=== PATIENT | female | born 1970 | race Caucasian/White ===

== ENCOUNTER 2018-12-10 16:50 | Observation (INO) | payer OTHER ==
--- NOTE | 2018-12-10 16:56 | ED ---
General Adult HPI - General Stated complaint: POSS CVA Time Seen by Provider: 12/10/18 16:52 Source: patient, EMS, RN notes reviewed, old records reviewed - History of Present Illness Initial comments: 48-year-old female presenting with difficulty speaking and seizure. Patient's symptoms initially began at 1513 according to EMS, she had some prior to being evaluated. Symptoms did return approximately 45 minutes later, EMS was called and during transport patient had a 45 second tonic clonic seizure with postictal period. This was witnessed by EMS. No medications were given. No complaints of headache, no chest pain, no abdominal pain. She had some mild nausea. She is able to answer simple questions at the time my evaluation. No previous history of CVA. Previous history of migraine headache. - Related Data Home Medications Medication Instructions Recorded Confirmed ALPRAZolam [Xanax] 0.25 mg PO Q8HR PRN 12/10/18 12/10/18 SUMAtriptan SUCCINATE [Imitrex] 100 mg PO DAILY PRN 12/10/18 12/10/18 Allergies Allergy/AdvReac Type Severity Reaction Status Date / Time erythromycin base Allergy Rash/Hives Verified 12/10/18 17:29 orange Allergy Rash/Hives Verified 12/10/18 18:08 peanut Allergy Rash/Hives Verified 12/10/18 18:08 Penicillins Allergy Anaphylaxis Verified 12/10/18 17:29 Review of Systems ROS Statement: Those systems with pertinent positive or pertinent negative responses have been documented in the HPI. ROS Other: All systems not noted in ROS Statement are negative. General Exam General appearance: alert, in no apparent distress Head exam: Present: atraumatic, normocephalic Eye exam: Present: normal appearance, PERRL, EOMI ENT exam: Present: normal exam Neck exam: Present: normal inspection. Absent: tenderness, meningismus Respiratory exam: Present: normal lung sounds bilaterally. Absent: respiratory distress Cardiovascular Exam: Present: regular rate, normal rhythm GI/Abdominal exam: Present: soft. Absent: distended, tenderness, guarding, rebound Extremities exam: Present: normal inspection, normal capillary refill. Absent: pedal edema Neurological exam: Present: alert, CN II-XII intact, motor sensory deficit (Patient has expressive aphasia, no dysarthria, no focal weakness in extremities, no facial weakness). Absent: oriented X3 (2) Skin exam: Present: warm, dry, intact. Absent: cyanosis, diaphoretic Course Vital Signs 12/10/18 12/10/18 12/10/18 16:50 17:05 17:20 Temperature 98.2 F Pulse Rate 102 H 101 H 97 Respiratory 18 16 12 Rate Blood Pressure 135/82 137/71 130/76 O2 Sat by Pulse 93 L 99 96 Oximetry 12/10/18 12/10/18 12/10/18 17:35 17:50 18:05 Temperature Pulse Rate 83 92 84 Respiratory 16 16 16 Rate Blood Pressure 117/76 124/76 114/67 O2 Sat by Pulse 95 96 97 Oximetry - Reevaluation(s) Reevaluation #1: 12/10/18 17:[address] Mckee, [id number], will review computed tomography scan results, possible TPA candidate Reevaluation #2: 12/10/18 17:23 Patient reevaluated, continues to have a nonfocal exam, her speech is fluid, she has no aphasia or dysarthria, symptoms completely resolved at 1720. EKG Findings - EKG Comments: EKG Findings:: EKG: Normal sinus rhythm, low voltage, rate of 95, WI interval 184, QRS duration 84, QTC 395, no ST segment elevation. Medical Decision Making - Medical Decision Making 48-year-old female presenting with expressive aphasia and suspected new onset seizure. Initially patient has expressive aphasia, this does resolve while in the emergency department. CT is performed which is negative for intracranial hemorrhage or mass effect, there is CT angiography performed in the emergency department which is negative for occlusion or stenosis. Patient has normal CBC, normal CMP. I did discuss case with stroke neurologist Dr. Love, recommends aspirin, and Keppra. No TPA as symptoms are resolved. On multiple re- evaluations, patient has fluid speech. She will be admitted for TIA evaluation as well as evaluation of new onset seizure. Case discussed with admitting physician Dr. Dawkins. - Lab Data Result diagrams: 12/10/18 17:32 12/10/18 17:32 Lab Results 12/10/18 12/10/18 12/10/18 Range/Units 16:54 17:32 17:32 WBC 10.2 (3.8-10.6) k/uL RBC 4.06 (3.80-5.40) m/uL Hgb 12.3 (11.4-16.0) gm/dL Hct 37.1 (34.0-46.0) % MCV 91.4 (80.0-100.0) fL MCH 30.4 (25.0-35.0) pg MCHC 33.2 (31.0-37.0) g/dL RDW 13.7 (11.5-15.5) % Plt Count 247 (150-450) k/uL Neutrophils % 75 % Lymphocytes % 15 % Monocytes % 6 % Eosinophils % 3 % Basophils % 0 % Neutrophils # 7.6 (1.3-7.7) k/uL Lymphocytes # 1.5 (1.0-4.8) k/uL Monocytes # 0.6 (0-1.0) k/uL Eosinophils # 0.3 (0-0.7) k/uL Basophils # 0.0 (0-0.2) k/uL PT (9.0-12.0) sec INR (<1.2) APTT (22.0-30.0) sec Sodium 135 L (137-145) mmol/L Potassium 3.9 (3.5-5.1) mmol/L Chloride 101 (98-107) mmol/L Carbon Dioxide 20 L (22-30) mmol/L Anion Gap 14 mmol/L BUN 17 (7-17) mg/dL Creatinine 0.79 (0.52-1.04) mg/dL Est GFR (CKD-EPI)AfAm >90 (>60 ml/min/1.73 sqM) Est GFR (CKD-EPI)NonAf 88 (>60 ml/min/1.73 sqM) Glucose 117 H (74-99) mg/dL POC Glucose (mg/dL) 119 H (75-99) mg/dL POC Glu [employer]ter ID Patel Simpson Calcium 9.1 (8.4-10.2) mg/dL Total Bilirubin 0.2 (0.2-1.3) mg/dL AST 26 (14-36) U/L ALT 33 (9-52) U/L Alkaline Phosphatase 70 (38-126) U/L Troponin I (0.000-0.034) ng/mL Total Protein 6.3 (6.3-8.2) g/dL Albumin 3.9 (3.5-5.0) g/dL Urine Color Urine Appearance (Clear) Urine pH (5.0-8.0) Ur Specific [place] (1.001-1.035) Urine Protein (Negative) Urine Glucose (UA) (Negative) Urine Ketones (Negative) Urine Blood (Negative) Urine Nitrite (Negative) Urine Bilirubin (Negative) Urine Urobilinogen (<2.0) mg/dL Ur Leukocyte Esterase (Negative) Urine RBC (0-5) /hpf Urine WBC (0-5) /hpf Ur Squamous Epith Cells (0-4) /hpf Hyaline Casts (0-2) /lpf Urine Opiates Screen (NotDetected) Ur Oxycodone Screen (NotDetected) Urine Methadone Screen (NotDetected) Ur Propoxyphene Screen (NotDetected) Ur Barbiturates Screen (NotDetected) U Tricyclic Antidepress (NotDetected) Ur Phencyclidine Scrn (NotDetected) Ur Amphetamines Screen (NotDetected) U Methamphetamines Scrn (NotDetected) U Benzodiazepines Scrn (NotDetected) Urine Cocaine Screen (NotDetected) U Marijuana (THC) Screen (NotDetected) Serum Alcohol <10 mg/dL 12/10/18 12/10/18 12/10/18 Range/Units 17:32 17:32 17:46 WBC (3.8-10.6) k/uL RBC (3.80-5.40) m/uL Hgb (11.4-16.0) gm/dL Hct (34.0-46.0) % MCV (80.0-100.0) fL MCH (25.0-35.0) pg MCHC (31.0-37.0) g/dL RDW (11.5-15.5) % Plt Count (150-450) k/uL Neutrophils % % Lymphocytes % % Monocytes % % Eosinophils % % Basophils % % Neutrophils # (1.3-7.7) k/uL Lymphocytes # (1.0-4.8) k/uL Monocytes # (0-1.0) k/uL Eosinophils # (0-0.7) k/uL Basophils # (0-0.2) k/uL PT 10.4 (9.0-12.0) sec INR 1.0 (<1.2) APTT 23.7 (22.0-30.0) sec Sodium (137-145) mmol/L Potassium (3.5-5.1) mmol/L Chloride (98-107) mmol/L Carbon Dioxide (22-30) mmol/L Anion Gap mmol/L BUN (7-17) mg/dL Creatinine (0.52-1.04) mg/dL Est GFR (CKD-EPI)AfAm (>60 ml/min/1.73 sqM) Est GFR (CKD-EPI)NonAf (>60 ml/min/1.73 sqM) Glucose (74-99) mg/dL POC Glucose (mg/dL) (75-99) mg/dL POC Glu Bumper And Painter ID Calcium (8.4-10.2) mg/dL Total Bilirubin (0.2-1.3) mg/dL AST (14-36) U/L ALT (9-52) U/L Alkaline Phosphatase (38-126) U/L Troponin I <0.012 (0.000-0.034) ng/mL Total Protein (6.3-8.2) g/dL Albumin (3.5-5.0) g/dL Urine Color Urine Appearance (Clear) Urine pH (5.0-8.0) Ur Specific [place] (1.001-1.035) Urine Protein (Negative) Urine Glucose (UA) (Negative) Urine Ketones (Negative) Urine Blood (Negative) Urine Nitrite (Negative) Urine Bilirubin (Negative) Urine Urobilinogen (<2.0) mg/dL Ur Leukocyte Esterase (Negative) Urine RBC (0-5) /hpf Urine WBC (0-5) /hpf Ur Squamous Epith Cells (0-4) /hpf Hyaline Casts (0-2) /lpf Urine Opiates Screen Not Detected (NotDetected) Ur Oxycodone Screen Not Detected (NotDetected) Urine Methadone Screen Not Detected (NotDetected) Ur Propoxyphene Screen Not Detected (NotDetected) Ur Barbiturates Screen Not Detected (NotDetected) U Tricyclic Antidepress Not Detected (NotDetected) Ur Phencyclidine Scrn Not Detected (NotDetected) Ur Amphetamines Screen Not Detected (NotDetected) U Methamphetamines Scrn Not Detected (NotDetected) U Benzodiazepines Scrn Not Detected (NotDetected) Urine Cocaine Screen Not Detected (NotDetected) U Marijuana (THC) Screen Not Detected (NotDetected) Serum Alcohol mg/dL 12/10/18 Range/Units 17:46 WBC (3.8-10.6) k/uL RBC (3.80-5.40) m/uL Hgb (11.4-16.0) gm/dL Hct (34.0-46.0) % MCV (80.0-100.0) fL MCH (25.0-35.0) pg MCHC (31.0-37.0) g/dL RDW (11.5-15.5) % Plt Count (150-450) k/uL Neutrophils % % Lymphocytes % % Monocytes % % Eosinophils % % Basophils % % Neutrophils # (1.3-7.7) k/uL Lymphocytes # (1.0-4.8) k/uL Monocytes # (0-1.0) k/uL Eosinophils # (0-0.7) k/uL Basophils # (0-0.2) k/uL PT (9.0-12.0) sec INR (<1.2) APTT (22.0-30.0) sec Sodium (137-145) mmol/L Potassium (3.5-5.1) mmol/L Chloride (98-107) mmol/L Carbon Dioxide (22-30) mmol/L Anion Gap mmol/L BUN (7-17) mg/dL Creatinine (0.52-1.04) mg/dL Est GFR (CKD-EPI)AfAm (>60 ml/min/1.73 sqM) Est GFR (CKD-EPI)NonAf (>60 ml/min/1.73 sqM) Glucose (74-99) mg/dL POC Glucose (mg/dL) (75-99) mg/dL POC Glu Bumper And Painter ID Calcium (8.4-10.2) mg/dL Total Bilirubin (0.2-1.3) mg/dL AST (14-36) U/L ALT (9-52) U/L Alkaline Phosphatase (38-126) U/L Troponin I (0.000-0.034) ng/mL Total Protein (6.3-8.2) g/dL Albumin (3.5-5.0) g/dL Urine Color Light Yellow Urine Appearance Clear (Clear) Urine pH 5.5 (5.0-8.0) Ur Specific [place] 1.034 (1.001-1.035) Urine Protein Negative (Negative) Urine Glucose (UA) Negative (Negative) Urine Ketones 1+ H (Negative) Urine Blood Trace H (Negative) Urine Nitrite Negative (Negative) Urine Bilirubin Negative (Negative) Urine Urobilinogen <2.0 (<2.0) mg/dL Ur Leukocyte Esterase Negative (Negative) Urine RBC 5 (0-5) /hpf Urine WBC 1 (0-5) /hpf Ur Squamous Epith Cells 3 (0-4) /hpf Hyaline Casts 1 (0-2) /lpf Urine Opiates Screen (NotDetected) Ur Oxycodone Screen (NotDetected) Urine Methadone Screen (NotDetected) Ur Propoxyphene Screen (NotDetected) Ur Barbiturates Screen (NotDetected) U Tricyclic Antidepress (NotDetected) Ur Phencyclidine Scrn (NotDetected) Ur Amphetamines Screen (NotDetected) U Methamphetamines Scrn (NotDetected) U Benzodiazepines Scrn (NotDetected) Urine Cocaine Screen (NotDetected) U Marijuana (THC) Screen (NotDetected) Serum Alcohol mg/dL Critical Care Time Critical Care Time: Yes Total Critical Care Time: 35 Disposition Clinical Impression: Transient cerebral ischemia, New onset seizure Disposition: ADMITTED IP TO THIS [facility] Condition: Stable Is patient prescribed a controlled substance at d/c from ED?: No Referrals: None,Stated [REFERRING] - 1-2 days Decision to Admit Reason: Admit from EC Decision Date: 12/10/18 Decision Time: 18:55
[2018-12-10 17:15] LABS: Glucose,Whole Blood 119 mg/dL (75-99)
[2018-12-10] MEDS ORDERED: SODIUM CHLORIDE 0.9% 1,000 ML IV ONE (17:22)
--- NOTE | 2018-12-10 17:27 | CT ---
EXAMINATION: CT brain wo con for TPA DATE AND TIME: 12/10/2018 5:14 PM CLINICAL INDICATION: PHH; Neuro Deficits TECHNIQUE: Standard departmental protocol.; 1104; COMPARISON: None. FINDINGS: The calvarium is intact. There is no intracranial hemorrhage. There is no intracranial mass or mass effect. No definite new intra-axial or extra-axial attenuation defect. The paranasal sinuses, middle ear cavities, and mastoid sinus air cells are clear. The orbits are unremarkable. IMPRESSION: NO ACUTE PROCESS.
[2018-12-10] MEDS ORDERED: ASPIRIN 325 MG TAB PO STA (17:28)
[2018-12-10] MEDS ORDERED: levETIRAcetam IV 1,000 MG in SALINE 1 100ML.BAG IVPB STA (17:28)
[2018-12-10 17:40] LABS: Basophils % (A) 0 %; Eosinophils # (A) 0.3 k/uL (0-0.7); Eosinophils % (A) 3 %; HCT 37.1 % (34.0-46.0); HGB 12.3 gm/dL (11.4-16.0); Lymphocytes # (A) 1.5 k/uL (1.0-4.8); Lymphocytes % (A) 15 %; MCH 30.4 pg (25.0-35.0); MCHC 33.2 g/dL (31.0-37.0); MCV 91.4 fL (80.0-100.0); Mean Platelet Volume 7.8; Monocytes # (A) 0.6 k/uL (0-1.0); Monocytes % (A) 6 %; Neutrophils # (A) 7.6 k/uL (1.3-7.7); Neutrophils % (A) 75 %; Platelet Count 247 k/uL (150-450); RBC 4.06 m/uL (3.80-5.40); RDW 13.7 % (11.5-15.5); WBC 10.2 k/uL (3.8-10.6)
[2018-12-10 17:49] LABS: ALT 33 U/L (9-52); AST 26 U/L (14-36); African American GFR (CKD) >90 (>60 ml/min/1.73 sqM); Albumin 3.9 g/dL (3.5-5.0); Alcohol <10 mg/dL; Alkaline Phosphatase 70 U/L (38-126); Anion Gap 14 mmol/L; Blood Urea Nitrogen 17 mg/dL (7-17); Calcium 9.1 mg/dL (8.4-10.2); Carbon Dioxide 20 mmol/L (22-30); Chloride 101 mmol/L (98-107); Glucose 117 mg/dL (74-99); Potassium 3.9 mmol/L (3.5-5.1); Sodium 135 mmol/L (137-145); Total Bilirubin 0.2 mg/dL (0.2-1.3); Total Protein 6.3 g/dL (6.3-8.2)
[2018-12-10 17:50] LABS: Partial Thromboplastin Time 23.7 sec (22.0-30.0); Prothrombin Time 10.4 sec (9.0-12.0)
[2018-12-10 18:03] LABS: Appearance,Urine Clear (Clear); Bilirubin,Urine Negative (Negative); Blood,Urine Trace (Negative); Color,Urine Light Yellow; Glucose,Urine (UA) Negative (Negative); Hyaline Casts,Urine 1 /lpf (0-2); Ketones,Urine 1+ (Negative); Leukocyte Esterase,Urine Negative (Negative); Nitrite,Urine Negative (Negative); PH, Urine 5.5 (5.0-8.0); Protein,Urine Negative (Negative); RBC,Urine 5 /hpf (0-5); Specific Gravity,Urine 1.034 (1.001-1.035); Squamous Epithelial Cell,Urine 3 /hpf (0-4); Urobilinogen,Urine <2.0 mg/dL (<2.0); WBC,Urine 1 /hpf (0-5)
[2018-12-10] MEDS ORDERED: ONDANSETRON 4 MG/2 ML VIAL IVP STA (18:04)
[2018-12-10] MEDS ORDERED: METOCLOPRAMIDE 5 MG/ML 2 ML VIAL IVP STA (18:04)
--- NOTE | 2018-12-10 18:13 | CT ---
EXAMINATION TYPE: CT angio head neck DATE OF EXAM: 12/10/2018 HISTORY: neuro deficits COMPARISON: , Nausea. CT DLP: 2122.7 mGycm. Automated Exposure Control for Dose Reduction was Utilized. TECHNIQUE: CTA scan of the neck is performed with IV Contrast, patient injected with 100 mL of Isovu e 370, axial images are obtained, coronal and sagittal reformatted images are reviewed. Three-D recon structed images are created on an independent workstation and reviewed. FINDINGS: The bilateral carotid arterial systems are widely patent without significant stenosis or d issection or aneurysm. Intracranial anterior circulation is widely patent, without significant stenos is or dissection or aneurysm. The bilateral vertebral arterial systems are widely patent without significant stenosis or dissection or aneurysm. Intracranial posterior circulation is widely patent, without significant stenosis or di ssection or aneurysm. The venous structures within the neck and the dural venous sinuses are widely patent. The airway is unremarkable. No soft tissue neck or upper thoracic pathology. No focal skeletal lesions. No incidental intracranial or intraspinal findings. IMPRESSION: No significant abnormality is seen.
[2018-12-10 18:19] LABS: Amphetamine Screen,Urine Not Detected (NotDetected); Barbiturate Screen,Urine Not Detected (NotDetected); Benzodiazepines Screen,Urine Not Detected (NotDetected); Cocaine Screen,Urine Not Detected (NotDetected); Methadone Screen, Urine Not Detected (NotDetected); Opiate Screen,Urine Not Detected (NotDetected); Oxycodone Screen, Urine Not Detected (NotDetected); Phencyclidine Screen,Urine Not Detected (NotDetected); Tricyclic Antidepressant,Urine Not Detected (NotDetected); Urn Cannabinoid Scrn Not Detected (NotDetected)
--- NOTE | 2018-12-10 19:31 | XR ---
EXAMINATION: XR chest 1V portable DATE AND TIME: 12/10/2018 5:57 PM CLINICAL INDICATION: PHH; altered mental status TECHNIQUE: Departmental protocol COMPARISON: None FINDINGS: The lungs are clear. The pleural spaces are negative. The cardiac silhouette is mildly enlarged. The remainder of the mediastinal silhouette is unremarkable. The skeletal structures and soft tissues are negative for acute findings. IMPRESSION: NO ACUTE PROCESS.
[2018-12-10 21:16] VITALS: BMI 39.2
[2018-12-10] MEDS: ATORVASTATIN 80 MG TAB PO SCH (21:21)
[2018-12-11] MEDS ORDERED: ALPRAZolam 0.25 MG TAB PO PRN (00:59)
[2018-12-11 03:15] LABS: Cholesterol 167 mg/dL (<200); HDL Cholesterol 51 mg/dL (40-60); LDL Cholesterol,Calculated 96 mg/dL (0-99); Triglycerides 100 mg/dL (<150)
[2018-12-11] MEDS: ACETAMINOPHEN TAB 325 MG TAB PO PRN ×2 (04:53→12:36)
[2018-12-11] MEDS: PANTOPRAZOLE 40 MG TABLET PO SCH (06:19)
--- NOTE | 2018-12-11 08:16 | HP ---
HISTORY AND PHYSICAL DATE OF SERVICE: 12/10/2018 CHIEF COMPLAINT: Difficulty in peaking as well as possible seizure disorder. HISTORY OF PRESENT ILLNESS: This 48-year-old woman with a past medical history of multiple medical problems including history of migraines, history of partial thyroidectomy, diskectomy in the back pain being followed by Dr. Carmita Srinivasan in the outpatient setting apparently driving with the daughter after seeing a house. The patient had difficulty in speaking. The patient was knowing what to say, but the words are not coming out according to her. Patient came up to the hospital, went back home but subsequently patient's difficulties increased and EMS was called and patient came back to [facility] Emergency Room again. The patient was noted to have some seizure-like movements by EMS, which lasted about 4 to 6 seconds and with a postictal period and the patient admitted for further evaluation and treatment. There is no history of any fever or rigors. No history of headache, loss of consciousness or seizures. The patient is also complaining of left calf pain also. PAST MEDICAL HISTORY: History of migraine, history of partial thyroidectomy, diskectomy, history of nicotine dependence. MEDICATIONS: Medications prior to admission include: 1. Imitrex 100 mg daily p.r.n. 2. Xanax 0.25 q.8 p.r.n. ALLERGIES: ERYTHROMYCIN, ORANGE, PEANUT, PENICILLIN. FAMILY HISTORY: No history of heart disease or strokes in the family. SOCIAL HISTORY: Previous history of smoking. No history of current smoking or alcohol intake. The patient is otherwise present of operations. REVIEW OF SYSTEMS: ENT: No diminished hearing or diminished vision. CARDIOVASCULAR SYSTEM: No angina. RESPIRATORY SYSTEM: No cough. GI: No nausea. : No dysuria. NERVOUS SYSTEM: As mentioned earlier. ALLERGY/IMMUNOLOGY: No history of asthma. MUSCULOSKELETAL SYSTEM: No history arthritis. CONSTITUTIONAL: As mentioned earlier. DERMATOLOGY: Negative. RHEUMATOLOGY: Negative. PSYCHIATRY: As mentioned earlier. PHYSICAL EXAMINATION: The patient is alert and oriented x3. Pulse 72, blood pressure is 112/71, respiration 18, temperature is 97.6, pulse ox 95% on room air. HEENT: Conjunctivae normal. Oral mucosa moist. NECK: No jugular venous distention. No carotid bruit. No lymph node enlargement. CARDIOVASCULAR: S1, S2 muffled. No S3, no S4. RESPIRATORY: Breath sounds diminished at the bases. A few rhonchi. No crackles. ABDOMEN: Soft, nontender. No mass palpable. LEGS: No edema, no swelling. NERVOUS SYSTEM: Higher function as mentioned. Moves all 4 limbs. No focal deficits. LYMPHATICS: No lymphadenopathy of the neck, axillae or groin. SKIN: No ulcer, rash or bleeding. JOINTS: No active deforming arthropathy. ASSESSMENT: 1. Possible tonic-clonic seizure disorder for evaluation. 2. Dysarthria and dysphagia, rule out transient ischemic attack. 3. Mild hyponatremia. 4. Increased random blood sugar. 5. History of migraines. 6. History of partial thyroidectomy. 7. 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 8. Remote history of nicotine dependence. 9. Obesity with body mass index of 39.3. RECOMMENDATIONS AND DISCUSSION: In this 48-year-old woman who presented with multiple complex medical issues, will monitor the patient closely. Continue the current medications, continue symptomatic treatment. Will initiate antiplatelet agents. Neuro checks. Complete neurovascular workup and EEG. Neurology consultation. The patient had a baseline CT and CT angiography which are within normal limits. We will continue to monitor. Guarded prognosis. Further recommendations to follow. A copy of this dictation forwarded to Dr. Carmita Srinivasan who is the primary physician. MMODL / IJN: [id number] / MTDSelvin
[2018-12-11] MEDS: ASPIRIN 325 MG TAB PO SCH (08:20)
[2018-12-11] MEDS: HEPARIN SODIUM,PORCINE 5,000 UNIT/ML 1 ML VIAL SQ SCH ×2 (08:20→20:14)
[2018-12-11] MEDS ORDERED: SUMAtriptan SUCCINATE 50 MG TAB PO PRN (09:00)
--- NOTE | 2018-12-11 10:52 | US ---
EXAMINATION TYPE: US venous doppler duplex LE LT DATE OF EXAM: 12/11/2018 10:33 AM COMPARISON: NONE CLINICAL HISTORY: Left Calf Pain . Pt states left leg pain SIDE PERFORMED: Left TECHNIQUE: The lower extremity deep venous system is examined utilizing real time linear array sonog mariela with graded compression, doppler sonography and color-flow sonography. VESSELS IMAGED: External Iliac Vein (EIV) Common Femoral Vein Deep Femoral Vein Greater Saphenous Vein * Femoral Vein Popliteal Vein Small Saphenous Vein * Proximal Calf Veins (* superficial vessels) Grayscale, color doppler, spectral doppler imaging performed of the deep veins of the left lower extr emity. There is normal flow, compressibility, vascular waveforms. Left Leg: Negative for DVT IMPRESSION: No sonographic evidence of deep venous thrombosis within the left lower extremity.
--- NOTE | 2018-12-11 12:12 | EEG ---
ELECTROENCEPHALOGRAM REPORT DATE OF SERVICE: 12/11/2018. PREAMBLE: This is a 48-year-old female with a history of migraine who presented with episode of difficulty with speaking with witnessed possible seizure activity with post- ictal phase. The study is performed to rule out any epileptiform activity. CURRENT MEDICATIONS: Imitrex, pantoprazole, heparin subcutaneous, atorvastatin, Tylenol, Xanax, aspirin. TYPE OF RECORDING: A routine 21 channel awake digital EEG recording was accomplished utilizing the 10/20 international electrode placement system. No sedation was given prior to the beginning of this recording. EEG FINDINGS: Background tracing is seen with a symmetric alpha rhythm that attenuates on eye opening and returns upon eye closure. There are scattered EMG artifacts that correspond to patient's facial movements. Photic stimulation elicits a symmetric driving response. Hyperventilation is not performed in this recording. As the tracing progresses, there is progressive slowing down of the background into the theta and occasionally delta range. Definitive sleep architecture is not seen. There are also scattered EKG artifacts. There is no background asymmetry, ictal or interictal patterns appreciated during this recording. IMPRESSION: This is a normal awake/drowsy electroencephalogram without background asymmetry or epileptiform discharges. Clinical correlation is advised. MMODL / IJN: [id number] / MTDSelvin
--- NOTE | 2018-12-11 12:17 | ECHOF ---
Referral Reason:Stroke MEASUREMENTS -------- HEIGHT: 154.9 cm WEIGHT: 91.2 kg BP: 101/57 RVIDd: 3.1 cm (< 3.3) IVSd: 1.4 cm (0.6 - 1.1) LVIDd: 4.3 cm (3.9 - 5.3) LVPWd: 1.4 cm (0.6 - 1.1) IVSs: 1.9 cm LVIDs: 2.7 cm LVPWs: 1.9 cm LAESV Index (A-L): 16.01 ml/m Ao Diam: 2.7 cm (2.0 - 3.7) AV Cusp: 2.2 cm (1.5 - 2.6) LA Diam: 3.7 cm (2.7 - 3.8) MV EXCURSION: 7.636 mm (> 18.000) MV EF SLOPE: 56 mm/s (70 - 150) EPSS: 0.8 cm MV E Lenin: 0.91 m/s MV DecT: 241 ms MV A Lenin: 0.88 m/s MV E/A Ratio: 1.03 RAP: 5.00 mmHg RVSP: 12.32 mmHg FINDINGS -------- Sinus rhythm. This was a technically difficult study with suboptimal views. The left ventricular size is normal. There is moderate concentric left ventricular hypertrophy. O verall left ventricular systolic function is normal with, an EF between 55 - 60 %. The right ventricle is normal in size. The left atrial size is normal. Normal LA size by volume 22+/-6 ml/m2. The right atrial size is normal. Lumason used The aortic valve is trileaflet and appears structurally normal. The mitral valve is normal. There is trace mitral regurgitation. Trace tricuspid regurgitation present. Right ventricular systolic pressure is normal at < 35 mmHg. There is no pulmonic regurgitation present. The aortic root size is normal. IVC Not well visulized. There is no pericardial effusion. CONCLUSIONS -------- 1. Sinus rhythm. 2. This was a technically difficult study with suboptimal views. 3. The left ventricular size is normal. 4. There is moderate concentric left ventricular hypertrophy. 5. Overall left ventricular systolic function is normal with, an EF between 55 - 60 %. 6. The right ventricle is normal in size. 7. The left atrial size is normal. 8. Normal LA size by volume 22+/-6 ml/m2. 9. The right atrial size is normal. 10. Lumason used 11. The aortic valve is trileaflet and appears structurally normal. 12. The mitral valve is normal. 13. There is trace mitral regurgitation. 14. Trace tricuspid regurgitation present. 15. Right ventricular systolic pressure is normal at < 35 mmHg. 16. There is no pulmonic regurgitation present. 17. The aortic root size is normal. 18. IVC Not well visulized. 19. There is no pericardial effusion. REHABILITATION INSPECTOR: Glory Rosales RDCS
--- NOTE | 2018-12-11 15:41 | P.CNNES ---
History of Present Illness Consult date: 12/11/18 Requesting physician: Juliocesar Magallon Reason for Consult: New-onset single seizure Chief complaint: "I passed out and was told I had a seizure" History of Present Illness: This is a 48-year-old right-handed female who was in their usual state of health on 12/10/2018. Patient was a passenger in a vehicle with her daughter driving. There were conversing when the daughter noticed that the patient was producing nonsensical speech. Patient stated that at that time, she was cognizant and th ought that her speech was normal; however, that was not the case according to the daughter who was listening to her. Patient went home and was noted to be confused. Paramedics were summoned. Reportedly while in route to the hospital, she was noted to have a generalized tonic-clonic seizure but without tongue or inner cheek biting or bowel or bladder incontinence. There was post-ictal confusion. There was no preceding aura, prodrome, jatin vu or witnessed repetitive behavior suspicious for automatism. There was no history of head or neck trauma. No new changes to her medications, physical or dietary habits. No extra physical or emotional stressors. No sleep deprivation. Patient does have a history of migraine that is in fact getting better as she is going through menopause. Patient states that she had never had any of the above neurological symptoms in association with her headaches. She does have alprazolam listed on her medication list, but patient states that she has not taken this benzodiazepine or any benzodiazepine for years. She also denies any illicit drug or stimulant use. Patient feels at her neurological baseline currently. Review of Systems 14-point ROS performed and as per HPI. Neurologically, patient denies other episodes of decreased level or loss of consciousness, changes in vision, diplopia, amaurosis, changes in hearing, facial droop, ptosis, vertigo, hearing loss, tinnitus, dysarthria, dysphagia, other focal numbness/weakness not mentioned above, bowel/bladder incontinence or ataxia. Past Medical History Additional Past Medical History / Comment(s): migraines History of Any Multi-Drug Resistant Organisms: None Reported Past Surgical History: No Surgical Hx Reported Additional Past Surgical History / Comment(s): partial thyroidectomy, disectomy in back Past Anesthesia/Blood Transfusion Reactions: No Reported Reaction Past Psychological History: No Psychological Hx Reported Smoking Status: Former smoker Past Alcohol Use History: None Reported Past Drug Use History: None Reported Medications and Allergies Home Medications Medication Instructions Recorded Confirmed Type ALPRAZolam [Xanax] 0.25 mg PO Q8HR PRN 12/10/18 12/10/18 History SUMAtriptan SUCCINATE [Imitrex] 100 mg PO DAILY PRN 12/10/18 12/10/18 History Allergies Allergy/AdvReac Type Severity Reaction Status Date / Time erythromycin base Allergy Rash/Hives Verified 12/10/18 17:29 orange Allergy Rash/Hives Verified 12/10/18 18:08 peanut Allergy Rash/Hives Verified 12/10/18 18:08 Penicillins Allergy Anaphylaxis Verified 12/10/18 17:29 Physical Examination - Vital Signs Vital Signs: Vital Signs Temp Pulse Pulse Resp BP BP Pulse Ox 12/11/18 12:00 97.6 F 64 17 109/52 96 12/11/18 08:00 97.8 F 66 18 104/52 96 12/11/18 04:00 97.0 F L 67 18 101/57 97 12/11/18 00:00 97.2 F L 76 18 105/70 97 12/10/18 21:10 97.6 F 72 18 112/71 95 12/10/18 20:45 72 18 12/10/18 20:30 80 16 115/63 12/10/18 20:00 79 17 120/63 94 L 12/10/18 19:30 74 14 116/69 97 12/10/18 19:00 73 15 115/62 97 12/10/18 18:46 97.8 F 78 18 120/63 97 12/10/18 18:30 82 14 114/67 96 12/10/18 18:05 84 16 114/67 97 12/10/18 17:50 92 16 124/76 96 12/10/18 17:35 83 16 117/76 95 12/10/18 17:20 97 12 130/76 96 12/10/18 17:05 101 H 16 137/71 99 12/10/18 16:50 98.2 F 102 H 18 135/82 93 L Intake and Output 12/11/18 12/11/18 12/11/18 06:59 14:59 22:59 Intake Total 480 Balance 480 Intake: Oral 480 Other: Voiding Method Toilet Toilet # Voids 1 1 Weight 88.2 kg Gen NAD Pleasant and cooperative HEENT NCAT Sclera without icterus O/P clear Neck Supple No carotid bruit Cor RRR no m/r/g Lungs CTAB Abd Soft NTND +BS Ext Warm to touch No edema Neuro MS A+Ox4 Normal fluency Able to follow all commands CN PERRL VFF no APD EOMI no nystagmus or VERENICE No facial asymmetry Masseter's symmetric Hearing intact to normal voice bilaterally Speech not dysarthric Equal elevation of palate Tongue midline Sym shrug and SCM bilaterally Motor Normal bulk/tone No pronator drift or tremors Strength 5/5 sym throughout Sens Intact to LT x4 No neglect Coord No dysmetria on FTN bilaterally DTRs 2+/4 sym throughout Toes downgoing bilaterally No clonus at achilles Gait Deferred Results CT Head wo cont 12/10/18. Nil acute. CTA Head/Neck 12/10/18. No intra or extracranial LVO or stenosis. EEG 12/11/18. No EPD. Normal awake/drowsy. TTE 12/11/18. Left ventricular size is normal. There is moderate concentric left ventricular hypertrophy. EF is between 55-60%. Left atrial size is normal. There are no intracardiac thrombi seen. - Laboratory Findings CBC and BMP: 12/10/18 17:32 12/10/18 17:32 Abnormal Lab Findings: Abnormal Labs 12/10/18 12/10/18 12/10/18 16:54 17:32 17:46 Sodium 135 L Carbon Dioxide 20 L Glucose 117 H POC Glucose (mg/dL) 119 H Urine Ketones 1+ H Urine Blood Trace H UTox negative. BAL <10 Assessment and Plan Assessment: New-onset single seizure, etiology unknown. Common migraine, unlikely to explain her seizure. Plan: -MRI Brain w vinayak -EEG unrevealing. Explained that EEG is not 100% sensitive in the absence of capturing a spell during monitoring. Epilepsy remains a clinical diagnosis. -If her MRI is also negative, for a single new-onset unprovoked seizure, the chance of her having recurrent seizure in the future is likely <50%. The majority of neurologists, myself included, would not commit her to long-term AED therapy if her seizure work-up is entirely unrevealing. However, if she goes on to have a 2nd unprovoked seizure, then chance of her having further recurrent seizures would be >75%, and in that case, she would need to be on long-term AED therapy. -Seizure precautions. -Patient actually has not taken any benzodiazepine for years. Explained the difference between provoked and unprovoked seizure and treatment algorithm. -Patient should not drive for 6 months from her last clinical seizure in accordance with the state law of [place]. Same common sense applies to engaging any physical activity that may endanger patient and/or others should she have recurrent seizure activity. Patient voices understanding. -Please refer patient to outpatient neurology for follow-up within the next 4 weeks. -d/w patient and family at bedside. All questions answered. Thank you for this consultation. Time with Patient: Greater than 30 (Time spent in direct patient care, greater than 50% of which was spent in [id number] counseling and coordination of care: 70 minutes.)
--- NOTE | 2018-12-11 17:57 | PN ---
PROGRESS NOTE DATE OF SERVICE: 12/11/2018 This 48-year-old woman who was admitted with difficulty in speaking as well as possible seizure disorder is being closely monitored. Neurology is following the patient closely. Two-D echo with Doppler was done that showed ejection fraction of about 50% to 60%. No major abnormalities. A venous Doppler was also done for the legs which showed no evidence of any DVT. EEG ordered by neurologist Dr. Alexander showed normal awake drowsy electrocardiogram without any background asymmetry or epileptiform discharges. No chest pain. No palpitations. No fever. On exam, alert and oriented x3. Pulse is 66, blood pressure 104/52, respiration 18, temperature 97.8, pulse ox 96% on room air. HEENT: Conjunctivae normal. NECK: No jugular venous distention. CARDIOVASCULAR SYSTEM: S1, S2 muffled. RESPIRATORY SYSTEM: Breath sounds diminished at the bases. No rhonchi. No crackles. ABDOMEN: Soft, non-tender. No mass palpable. LEGS: No edema. No swelling. NERVOUS SYSTEM: No focal deficit. LABS AT THIS TIME: CBC within normal limits. Sodium 135. Glucose 117. UA noted. ASSESSMENT: 1. Possible acute tonic-clonic seizures, for evaluation. 2. Dysarthria, dysphagia. Rule out acute transient ischemic attack. 3. Mild hyponatremia. 4. Increased random blood sugar. 5. History of migraines. 6. History of partial thyroidectomy. 7. 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 8. Remote history of nicotine dependence. 9. Obesity with body mass index of 39.3. DISCUSSION AND RECOMMENDATIONS: I recommend to continue current medications, continue with the monitoring, symptomatic treatment. Neurology has seen the patient. EEG is noted. MRI has been ordered. Otherwise, continue the rest of the medications. Telemetry. Guarded prognosis. Further recommendations to follow. MMODL / IJN: [id number] /
[2018-12-11] MEDS: ATORVASTATIN 80 MG TAB PO SCH (20:14)
[2018-12-12 06:29] LABS: Basophils % (A) 0 %; Eosinophils # (A) 0.2 k/uL (0-0.7); Eosinophils % (A) 2 %; HCT 36.6 % (34.0-46.0); Lymphocytes # (A) 1.8 k/uL (1.0-4.8); Lymphocytes % (A) 25 %; MCH 30.3 pg (25.0-35.0); MCHC 32.7 g/dL (31.0-37.0); MCV 92.6 fL (80.0-100.0); Mean Platelet Volume 8.4; Monocytes # (A) 0.5 k/uL (0-1.0); Monocytes % (A) 6 %; Neutrophils # (A) 4.8 k/uL (1.3-7.7); Neutrophils % (A) 65 %; Platelet Count 218 k/uL (150-450); RBC 3.95 m/uL (3.80-5.40); RDW 14.6 % (11.5-15.5); WBC 7.4 k/uL (3.8-10.6)
[2018-12-12] MEDS: PANTOPRAZOLE 40 MG TABLET PO SCH (06:42)
[2018-12-12 06:54] LABS: African American GFR (CKD) >90 (>60 ml/min/1.73 sqM); Anion Gap 5 mmol/L; Blood Urea Nitrogen 14 mg/dL (7-17); Calcium 8.8 mg/dL (8.4-10.2); Carbon Dioxide 26 mmol/L (22-30); Chloride 108 mmol/L (98-107); Cholesterol 138 mg/dL (<200); Glucose 91 mg/dL (74-99); HDL Cholesterol 49 mg/dL (40-60); LDL Cholesterol,Calculated 70 mg/dL (0-99); Sodium 139 mmol/L (137-145); Triglycerides 96 mg/dL (<150)
[2018-12-12] MEDS: ASPIRIN 325 MG TAB PO SCH (08:48)
[2018-12-12] MEDS: HEPARIN SODIUM,PORCINE 5,000 UNIT/ML 1 ML VIAL SQ SCH (08:48)
[2018-12-12] MEDS ORDERED: LORazepam 2 MG/ML INJ IV STA (11:34)
--- NOTE | 2018-12-12 13:29 | P.PN ---
Subjective Progress Note Date: 12/12/18 Principal diagnosis: New-onset single seizure No events O/N. No seizure. No new neuro c/o. Family at bedside with questions. Objective - Vital Signs Vital signs: Vital Signs Temp 97.6 F 12/12/18 08:00 Pulse 72 12/12/18 08:00 Resp 16 12/12/18 08:00 BP 123/62 12/12/18 08:00 Pulse Ox 97 12/12/18 08:00 Intake & Output 12/11/18 12/12/18 12/12/18 18:59 06:59 18:59 Intake Total 840 Balance 840 Weight 89.2 kg Intake: Oral 840 Other: Voiding Method Toilet Toilet Toilet # Voids 1 1 - Exam Gen NAD Pleasant and cooperative MS A+Ox4 Normal speech CN II-XII grossly intact no nystagmus Motor Normal bulk/tone No tremors LEON x4 Sens Intact to LTx4 No neglect Coord Not tested DTRs 2+/4 sym throughout Gait Deferred - Labs CBC & Chem 7: 12/12/18 05:34 12/12/18 05:34 Labs: Abnormal Lab Results - Last 24 Hours (Table) 12/12/18 Range/Units 05:34 Chloride 108 H (98-107) mmol/L Assessment and Plan Assessment: New-onset single seizure, etiology unknown. Common migraine, unlikely to explain her seizure. Plan: -MRI Brain w vinayak pending. -EEG unrevealing. Explained that EEG is not 100% sensitive in the absence of capturing a spell during monitoring. Epilepsy remains a clinical diagnosis. -If her MRI is also negative, for a single new-onset unprovoked seizure, the chance of her having recurrent seizure in the future is likely <50%. The majority of neurologists, myself included, would not commit her to long-term AED therapy if her seizure work-up is entirely unrevealing. However, if she goes on to have a 2nd unprovoked seizure, then chance of her having further recurrent seizures would be >75%, and in that case, she would need to be on long-term AED therapy. -Seizure precautions. -Patient should not drive for 6 months from her last clinical seizure in acco rdance with the state law of [place]. Same common sense applies to engaging any physical activity that may endanger patient and/or others should she have recurrent seizure activity. Patient voices understanding. -Please refer patient to outpatient neurology for follow-up within the next 4 weeks. -d/w patient and family at bedside and had extensive [id number] discussion to address all concerns to consumers' satisfaction. -May discharge after MRI. No further neuro recs at this time. Please call with new ?. Thank you again for this consultation. Please call with ?. Time with Patient: Greater than 30 (Time spent in direct patient care, greater than 50% of which was spent in [id number] counseling and coordination of care: 35 minutes)
--- NOTE | 2018-12-12 17:33 | MR ---
EXAMINATION TYPE: MR brain wo/w con DATE OF EXAM: 12/12/2018 COMPARISON: CT 12/10/2018 HISTORY: New onset seizure TECHNIQUE: Multiplanar, multisequence images of the brain and brainstem is performed without and with IV contras t, utilizing standard departmental volume of intravenous gadolinium contrast. FINDINGS: Diffusion weighted images demonstrate no evidence of a recent infarct or other diffusion ab normality. There are a few scattered lateral T2 hyperintensities measuring 1 and 2 mm, these are few in number a nd are entirely nonspecific and are seen in the barron radiata and centrum semiovale. There is no extra-axial fluid collection or significant white matter signal abnormality. The ventric ular system and cisternal spaces are normal in size and appearance. The brain volume is age appropri ate. Midline structures demonstrate normal morphology. The craniocervical junction appears within normal limits. Post contrast images demonstrate no abnormal enhancement. The dural venous sinuses appear pa tent. The visualized sinuses are clear and the globes are intact. IMPRESSION: 1. No definite acute process. 2. Nonspecific T2 hyperintensities.
[2018-12-12 18:15] VITALS: BP 106/70; PULSE 74; RESP 18; TEMP 98.2
--- NOTE | 2018-12-12 21:41 | DS ---
DISCHARGE SUMMARY DATE OF SERVICE: 12/12/2018. FINAL DIAGNOSES: 1. Acute tonic-clonic seizures possibly for evaluation. 2. Dysarthria, dysphasia, possible acute transient ischemic attack. 3. Mild hyponatremia. 4. Increased random blood sugar. 5. History of migraine. 6. History of partial thyroidectomy. 7. 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 8. Remote history of nicotine dependence. 9. Obesity with body mass index of 39.3. DISCHARGE DISPOSITION: Patient will be discharged in stable condition with guarded prognosis. HISTORY OF PRESENT ILLNESS: This 48-year-old woman with a past medical history of multiple medical problems was admitted with acute tonic-clonic seizures. The patient was monitored closely. Neurology saw the patient. The patient also has some evidence of transient ischemic attack. The MRI has been pending at this time. Neurology saw the patient and recommend to be discharged if MRI is normal. On exam, vitals signs are stable. Cardiovascular: S1, S2. Abdomen soft. Nervous system: No focal deficits. Otherwise the rest of the neurovascular workup was negative. The patient's echocardiogram showed no acute lesions. The patient will be discharged in stable condition with guarded prognosis. DISCHARGE ADVICE AND MEDICATIONS: 1. Diet is cardiac. 2. Activity limited until follow up. 3. No driving for six months per [place] laws. 4. Follow up with Dr. Srinivasan. 5. Follow up with Dr. Baltazar in 1 week. DISCHARGE MEDICATIONS: 1. Imitrex 100 mg daily p.r.n. 2. Xanax 0.5 q.8h p.r.n. 3. Ecotrin 81 mg p.o. daily. 4. Imdur 10 mg p.o. q.h.s. Once again, the patient will be discharged in stable condition with guarded prognosis. MMODL / IJN: [id number] /
== END 2018-12-12 18:27 | disposition home health service (06) ==
LOC: EC 16:50 → 3SCARD 18:46
PROVIDERS: ADMIT Hospitalist; ATTEND Hospitalist
DX: G40.89 Other seizures (principal); E87.1 Hypo-osmolality and hyponatremia; G43.909 Migraine, unspecified, not intractable, without status migrainosus; R47.9 Unspecified speech disturbances; R11.0 Nausea; R13.10 Dysphagia, unspecified; R47.1 Dysarthria and anarthria; R47.01 Aphasia; E89.0 Postprocedural hypothyroidism; M79.662 Pain in left lower leg; R73.09 Other abnormal glucose; M47.9 Spondylosis, unspecified; E66.9 Obesity, unspecified; Z68.39 Body mass index [BMI] 39.0-39.9, adult; Z78.0 Asymptomatic menopausal state; Z79.899 Other long term (current) drug therapy; Z88.1 Allergy status to other antibiotic agents; Z91.010 Allergy to peanuts; Z88.0 Allergy status to penicillin; Z91.018 Allergy to other foods; Z87.891 Personal history of nicotine dependence
CPT/HCPCS: 96372 ×2; 96375 ×2; 96361; 96374; 99291; 36415; 95819; 93005; 93306; 97162; 97166; 92523; 80061 ×2; 80053; 80048; 84484; 85025 ×2; 85610; 85730; 81001; 80306; 80320; 71045; 93971; 70496; 70450; 70498; 70553; G0378 ×3; J2060; J1644 ×2; J2765; J1953; A9585; Q9950; Q9967